=== PATIENT | female | born 2000 ===

== ENCOUNTER 2023-09-24 06:11 | Day surgery (SDC) | payer BC, SELFPAY ==
[2023-09-24] VITALS (10 sets, daily range): BP systolic 109–125; BP diastolic 53–84
[2023-09-24] MEDS: CELEBREX 200 MG PO (06:46)
[2023-09-24] MEDS: TYLENOL 1000 MG PO (06:46)
[2023-09-24] MEDS: NORMOSOL-R 1000 IV (06:46)
--- NOTE | 2023-09-24 08:34 | W.IMMPOSTOP ---
Surgical Immed Post Op Note
-
Primary Surgeon: Isaiah Love MD
Assisting Surgeon: None
Pre-op Diagnosis: Perianal abscess, possible fistula, anal skin tag
Post-op Diagnosis: Perianal fistula, anal skin tag, posterior midline anal fissure, anal lesion
Procedure Performed: Exam under anesthesia, excision of anal skin tag, fissurectomy, placement of seton, debridement of fistula tract
Anesthesia Type: Sedation with local
Specimen / Cultures: 1. Anal fistula tract 2. Anal skin tag 3. Left lateral mid anal biopsy
Estimated Blood Loss: 10 mL
Complications: None
Operative Findings: Per op note
--- NOTE | 2023-09-24 08:37 | OR.RPT ---
Operative Report
Operative Report
DATE OF OPERATION: 09/24/2023
SURGEON: Isaiah Love MD
PREOPERATIVE DIAGNOSIS: Perianal abscess, possible fistula, anal skin tag
POSTOPERATIVE DIAGNOSIS: Left anterior transsphincteric anal fistula, posterior midline anal skin tag, posterior midline anal fissure, anal lesion
OPERATION: Exam under anesthesia, debridement of fistula tract with biopsy placement of seton, excision of anal skin tag, fissurectomy, anal lesion biopsy, bilateral pudendal nerve block
ASSISTANTS:
1. None
ANESTHESIA: MAC w/ local
ESTIMATED BLOOD LOSS: 10 mL
FINDINGS:
1. Anal canal measuring 3.5 cm in length anteriorly and 4 cm in length posteriorly; external opening in the left anterior perianal region about 3 cm from the anal verge; fistula tract easily identified extending radially to the left anterior area
of the mid anal canal near the dentate line; debrided the external opening, curetted the fistula tract, sent tract for pathology and placed a seton
2. Posterior midline with small anal fissure, about 3 mm in length associated with a skin tag; excised the skin tag and fulgurated the fissure
3. Identified mosaic pattern in the left lateral position of the mid anal canal, no obvious masses noted; performed biopsy to rule out intraepithelial lesion
SPECIMENS:
1. Anal fistula
2. Anal skin tag
3. Left lateral mid anal canal biopsy
DRAINS: None
COMPLICATIONS: None
INDICATIONS: The patient is a 23-year-old female who presented to my office for concern of perianal pain and drainage. On exam, there appeared to be an external opening in the left anterior perianal position, about 2 to 3 cm from the anal verge
with drainage of pus. Therefore, the patient was recommended to have surgery to investigate for possible fistula. The patient also had a posterior skin tag. The operation was discussed with the patient in detail, including the risks, benefits and
alternatives. Risks described included, but not limited to bleeding, infection, damage to nearby structures such as the anal sphincter, fecal incontinence, recurrence, urinary retention, inability to identify the internal opening and anesthetic
risks. The patient understood and agreed to proceed. The consent was signed and placed in the chart.
PROCEDURE IN DETAIL: The patient was taken to the operating room. The patient was then placed on the operating table in prone position. Sequential compression devices were placed bilaterally. Sedation was commenced without complication. Two seat
belts were secured around the legs and upper back. The buttocks were taped apart. The perineum was prepped and draped in the usual fashion. A time-out was then performed verifying the correct patient, procedure, operative site, positioning, and
special equipment.
Local anesthesia used was a mixture of 60 mL of 0.25% Marcaine without epinephrine (with epinephrine was on backorder) and 0.6 mg of dexamethasone. 40 mL was injected perianally at the beginning of the case. The anorectal exam was performed
assessing all four quadrants of the anal canal using Hill-Granger retractors in progressively increasing size. There was the external opening associated with scarring of the perianal skin, about 1 cm in diameter. This was located in the left
anterior perianal region, about 3 cm from the anal verge. There was a pendulous skin tag in the posterior midline associated with a small posterior midline anal fissure, only about 3 mm in size. There was a moderate-sized semi-pendulous skin tag
in the anterior midline. There were small, nonthrombosed, not irritated external hemorrhoids. There is also some superficial changes to the left lateral area of the mid anal canal, which I would describe as mosaicism. No obvious masses or lesions
were noted.
I began by passing a fistula probe from the external opening towards the anal canal. A tract was easily identified that was oriented radially with an internal opening at the right anterior position at the level of the dentate line. I measured her
anal canal to be 4 cm posteriorly and about 3.5 cm anteriorly. The dentate line was about 1.5 cm proximal to the anal verge. Therefore, the fistula involved about 30 to 50% of the anal canal anteriorly. The fistula was transphincteric, including
the external sphincter as well. Therefore, I decided the best operation at this point would be to debride the external opening and fistula tract with placement of seton.
I turned my attention to the posterior midline fissure. As the associated skin tag was pendulous, I elevated this and excised this with the Metzenbaum scissors, taking care to avoid injury to the underlying sphincter. Hemostasis was achieved with
electrocautery. I then fulgurated the anal fissure with electrocautery to encourage wound healing. There was no concerning adjacent lesions to the anal fissure. Next, I performed a biopsy of the left lateral mid anal canal to rule out concern of
intraepithelial lesion in this area. Using a forceps, I grasped a small amount of epithelium, elevated it, and excised a small piece with Metzenbaum scissors. I passed this off for pathology. Hemostasis was achieved with electrocautery.
I turned my attention back to the fistula. I excised the scar of the external opening with electrocautery and passed this off for pathology. I curetted the fistula tract with a small curette and passed off the granulation tissue for pathology as
well. I opened the perianal skin along the fistula probe towards the anal verge until I encountered the external sphincter, in order to shorten the length of the fistula, ensuring no injury to the external sphincter. I passed a 3-0 silk tie
attached to the fistula probe through the fistula tract. I then passed a red vessel loop attached to the 3-0 silk tie through the fistula tract. I secured the vessel loop to itself with 3 knots of 2-0 silk.
Hemostasis was checked and assured. Surgicel was placed in the operative site prophylactically. The remaining local was injected. 5 mL was injected bilaterally for a pudendal nerve block. 10 mL was injected around the surgical site and perianally.
At this point, the procedure was complete. All needle, sponge and instrument counts were correct. The patient tolerated the procedure well and was transferred to the recovery room in stable condition with gauze and silk tape in place over the anus.
DICTATED BY: Isaiah Love MD
== END 2023-09-24 10:12 | disposition home or self-care (01) ==
LOC: SDS 06:11
PROVIDERS: ATTENDING PHYSICIAN Surgery
DX: K60.2 Anal fissure, unspecified (principal); R85.613 High grade squamous intraepithelial lesion on cytologic smear of anus (HGSIL); K64.4 Residual hemorrhoidal skin tags
CPT/HCPCS: 46922; 46200; 88304; 88305; 88341; 88342

== ENCOUNTER → 2023-12-10 14:01 | Outpatient (REF) | payer BC, SELFPAY ==
[2023-12-17 05:19] LABS: HPV, High Risk Detected; HPV, High Risk Source Anal
== END ==
LOC: CLAB 14:01
PROVIDERS: ATTENDING PHYSICIAN Surgery
DX: R85.613 High grade squamous intraepithelial lesion on cytologic smear of anus (HGSIL) (principal)
CPT/HCPCS: 87624; 88112

== ENCOUNTER 2023-12-24 06:55 | Day surgery (SDC) | payer BC, SELFPAY ==
[2023-12-24 07:52] VITALS: BP 123/69
[2023-12-24 08:14] VITALS: BMI 28.6
[2023-12-24] MEDS: CELEBREX 200 MG PO (08:17)
[2023-12-24] MEDS: TYLENOL 1000 MG PO (08:17)
[2023-12-24] MEDS: NORMOSOL-R/PLASMALYTE-A 1000 IV (08:34)
--- NOTE | 2023-12-24 10:14 | W.IMMPOSTOP ---
Surgical Immed Post Op Note
-
Primary Surgeon: Isaiah Love MD
Assisting Surgeon: None
Pre-op Diagnosis: Transsphincteric left anterior perianal fistula, anal skin tag
Post-op Diagnosis: Transsphincteric left anterior perianal fistula, anal skin tag, anal fissure
Procedure Performed: Exam under anesthesia, ligation of intersphincteric fistula tract, anal skin tag excision, bilateral pudendal nerve block
Anesthesia Type: Sedation with local
Specimen / Cultures: Fistula tract, left anterior anal skin tag
Estimated Blood Loss: 5 mL
Complications: None
Operative Findings: Small, about 2 to 3 mm, PML anal fissure, unlikely contributing to her symptoms; large multilobulated anterior midline anal skin tag, a seton extending from the internal opening (about 1 cm distal to the dentate line) to the
external opening, about 3.5 cm from the anal verge (I had shortened the length of the fistula to less than 2.5 cm, but this healed back down with the external opening close to where it originated); I debrided the external opening; there was about 5
mm of internal sphincter and 5 mm of external sphincter; as this is a young female with an anteriorly oriented fistula tract, I elected to proceed with left procedure; after ligation of fistula tract, dilute hydroperoxide confirmed no leak; to close
the wound, I excised a portion of the anal skin tag and closed the incision loosely with four 2-0 Vicryl's; left the external opening open to promote drainage
[2023-12-24 10:18] VITALS: BP 102/73
--- NOTE | 2023-12-24 10:20 | OR.RPT ---
Operative Report
Operative Report
DATE OF OPERATION: 12/24/2023
SURGEON: Isaiah Love MD
PREOPERATIVE DIAGNOSIS: Transsphincteric left anterior perianal fistula, anal skin tag
POSTOPERATIVE DIAGNOSIS: Transsphincteric left anterior perianal fistula, anal skin tag, posterior midline anal fissure
OPERATION: Exam under anesthesia, ligation of intersphincteric fistula tract, excision of anal skin tag, debridement of external opening, bilateral pudendal nerve block
ASSISTANTS:
1. None
ANESTHESIA: Sedation with local
ESTIMATED BLOOD LOSS: 5 mL
FINDINGS:
1. Large multilobulated anterior midline anal skin tag
2. Transsphincteric left anterior perianal fistula with internal opening originating 1 cm distal to the dentate line, extending in a radial fashion externally to about 3.5 cm from the anal verge; 5 mm of internal and 5mm of external sphincter were
still involved with the fistula tract; proceeded with LIFT procedure
3. Small posterior midline anal fissure, only about 2-3 mm in size, no granulation tissue at the base
4. Excised scar and granulation tissue at the external opening in the left anterior position; wound was left open to encourage postoperative drainage, measuring about 2 cm x 1.5 cm in size
SPECIMENS:
1. Fistula tract
2. Left anterior anal skin tag
DRAINS: None
COMPLICATIONS: None
INDICATIONS: The patient is a 23-year-old female who initially presented to me with perianal pain and a possible perianal cyst. She was noted to have anal skin tags, a thrombosed external hemorrhoid, small internal hemorrhoids and an external
opening in the left anterior position about 5 to 6 cm from the anal verge, concerning for a perianal fistula. She was taken to the operating room on 09/24/2023. She was noted to have a left anterior transsphincteric fistula. This was shortened and
a seton was placed. The thrombosed external hemorrhoid had resolved. She was noted to have a posterior midline fissure that was fulgurated. A posterior midline tag was excised. There was an area of mosaicism in the mid-anal canal, which was
biopsied and showed HSIL. She will undergo high-resolution anoscopy after definitive treatment of her fistula. Postoperatively, the anal pain associated with the fissure resolved. For the fistula, I recommended that she undergo a second stage
surgery for a repeat assessment. The operation was discussed with the patient in detail, including the risks, benefits and alternatives. My operative plan will depend on the intraoperative findings. Specifically, I would assess for the amount of
sphincter involvement. If there is minimal sphincter involvement, I would proceed with fistulotomy as this has the lowest risk of recurrence. However, if there is a significant amount of sphincter still involved, I would proceed with a
sphincter-sparing procedure, such as a LIFT procedure versus an advancement flap. These procedures have a significantly higher risk of recurrence, but have a lower risk of sphincter injury and subsequent incontinence. Risks described included, but
not limited to, bleeding, infection, urinary retention, damage to nearby structures such as the anal sphincter, fecal incontinence, anal stenosis, recurrence, flap complications if one is created (i.e.- ischemia, flap loss or failure) and anesthetic
risks. The patient and patient's mom understood and agreed to proceed. The consent was signed and placed in the chart.
PROCEDURE IN DETAIL: The patient was taken to the operating room. The patient was then placed on the operating table in prone position. Sequential compression devices were placed bilaterally. Sedation was commenced without complication. Two seat
belts were secured around the legs and upper back. The buttocks were taped apart. The perineum was prepped and draped in the usual fashion. A time-out was then performed verifying the correct patient, procedure, operative site, positioning, and
special equipment.
Local anesthesia used was a mixture of 60 mL of 0.25% Marcaine without epinephrine and 0.6 mg of dexamethasone. 40 mL was injected perianally at the beginning of the case. The anorectal exam was performed assessing all four quadrants of the anal
canal using Hill-Granger retractors in progressively increasing size. She had a large anterior midline multilobulated anal skin tag. There was a portion of the skin tag towards the left of midline that was adjacent to the fistula. She was noted
to have small, non-irritated, internal hemorrhoids. There was a small posterior midline anal fissure, about 2 to 3 mm in size. The fissure appeared acute without rolled edges or granulation tissue at the base. Therefore, the Hill-Granger likely
stretched the fissure slightly. As she had no pain preoperatively, I suspect that this fissure was not contributing to her symptoms and I left this alone. The seton was in place through the left anterior transsphincteric fistula. The internal
opening was radially located at about 1 cm distal from the dentate line. The external opening that had been opened to shorten the fistula tract had healed in a manner to extend the fistula tract close to its length prior to the seton placement, and
was now about 3.5 cm from the anal verge. The seton was replaced with a fistula probe and the sphincter involvement was assessed. There appeared to be about 5 mm of internal sphincter and 5 mm of external sphincter still involved with the fistula.
I excised the scar tissue associated with the external opening and extended this towards the anus to shorten the tract once more. I passed off the external opening for pathology. I again confirmed that there was still about 5 mm of external
sphincter muscle involved. At this point, anesthesia requested more local be injected as the patient was moving. 30 mL of 0.25% Marcaine with epi was mixed with 0.3 mg of dexamethasone. 5 mL of this new mixture were injected perianally to improve
the local anesthesia.
Based on the above findings and because the patient is a young female with child-bearing years still ahead, I elected to proceed with a LIFT procedure in order to minimize any damage to the sphincter complex. With the fistula probe in place, I
created a curvilinear incision at the intersphincteric groove, about 1.5 cm in length, while retracting the anterior midline anal skin tag away. I set up a [place] retractor to assist with exposure using 4 hooks. I used the large Hill-Granger
retractor to expose the internal opening. I dissected down between the internal and external sphincter and circumferentially exposed to the fistula with a right angle. I placed a vessel loop around the fistula and secured this to the drapes. I
removed the fistula probe and curetted the fistula tract. I suture-ligated the fistula tract within the intersphincteric groove using a 3-0 Vicryl proximally and distally. I divided the tract using a 15 blade scalpel and removed the vessel loop.
I tested the closure by gently injecting dilute hydrogen peroxide from the external opening. A tiny leak from the external portion of the fistula was noted. Another [id number] 2-0 Vicryl was placed at the external end of the tract. Another
leak test was performed and was now negative. The internal end of the fistula tract was ligated once more with an additional [id number] 2-0 Vicryl. The operative field was irrigated and hemostasis was assured.
As the anterior midline skin tag was immediately adjacent to my curvilinear incision, to help with closure, I excised the lobule of the skin tag that was just left of midline using a Metzenbaum scissors. After this, the incision lined up nicely. It
was then loosely closed with 2-0 Vicryl interrupted stitches. Hemostasis was checked and assured. Using 15 mL of the 0.25% Marcaine with epi mixed with dexamethasone, I injected 5 mL bilaterally for a pudendal nerve block and 5 mL was injected
around the surgical site and perianally. Hemostasis was reassessed once more using the small Hill-Granger and was confirmed.
At this point, the procedure was complete. All needle, sponge and instrument counts were correct. The patient tolerated the procedure well and was transferred to the recovery room in stable condition with gauze dressing in place secured with silk
tape.
DICTATED BY: Isaiah Love MD
[2023-12-24 10:25] VITALS: BP 114/57
[2023-12-24 10:42] VITALS: BP 121/65
[2023-12-24 10:45] VITALS: BP 115/67
[2023-12-24 10:53] VITALS: BP 118/53
[2023-12-24] MEDS: MOTRIN 600 MG PO (11:10)
== END 2023-12-24 11:10 | disposition home or self-care (01) ==
LOC: SDS 06:55
PROVIDERS: ATTENDING PHYSICIAN Surgery
DX: K60.30 Anal fistula, unspecified (principal); K64.4 Residual hemorrhoidal skin tags; K60.2 Anal fissure, unspecified
CPT/HCPCS: 46275; 45990; 88304

== ENCOUNTER 2024-01-13 09:25 | Emergency (ER) | payer BC, SELFPAY ==
[2024-01-13 09:44] VITALS: BP 142/86
--- NOTE | 2024-01-13 11:16 | ED.MUSCINJ ---
HPI-Injury
General
Chief Complaint: Fall
Source: patient
Exam Limitations: none
Time Seen by Provider: 01/13/24 11:08
History of Present Illness-Injury
Initial Injury comments:
23-year-old female presents after a fall down the whole flight of stairs. She states she missed the first step and fell missing all of the steps hitting her head on the wall on the bottom of the steps. She put a hole in the wall with her head.
She notes a slight headache and neck pain. No noted loss of conscious. She denies chest or abdominal pain. She denies arm or leg pain. She admits to biting her lower lip and having a brush burn to her left knee.
Phy Exam
Physical Exam
Physical Exam:
General: Well-appearing female no acute respiratory distress
HEENT: Normocephalic superficial puncture to the mucosal side of the lower lip. Dentition appears well pupils equal round reactive to light
Heart: Regular rate and rhythm no murmur
Lungs: Clear no wheeze
Musculoskeletal exam: Mild paraspinous tenderness about the cervical spine. Good range of motion to the arms and legs
Abdomen is soft nontender nondistended
Injury Course
Orders/Labs/Results
Orders:
Orders
01/13/24 11:15
CT Cervical Spine W/o Iv Contr Urgent
Comment:
Reason For Exam: fall down 12 steps
01/13/24 11:16
CT Head W/o Iv Contrast Urgent
Comment:
Reason For Exam: fall
MDM/Problems Addressed
Differential Diagnosis Includes:
Fall down steps. Mechanism of fall is somewhat concerning given the height of the fall and that it is slowing down and I will mid staircase. She and slight neck pain. No deficit on exam will order CT of head and cervical spine. Will dress left
knee abrasion with antibacterial ointment and a Band-Aid
*Critical Care Note
Total Time (30-74mins, 75-104mins- exclusive of procedures): Not Applicable
Update Note
Update Note:
CT of head and cervical spine both negative for acute traumatic injury. Patient reassured. Stable for discharge
ED Attending Note
-
Portions of this chart may have been created with voice recognition software.� Occasional wrong word or��sound alike� substitutions may have occurred due to the inherent limitations of voice recognition software.
Discharge Plan
Departure
Patient Disposition: Home (Routine Discharge)
Date of Disposition: 01/13/24
Time of Disposition: 13:26
Patient with high blood pressure during this ER visit?: No
Discharge Problem:
Fall
Instructions: Head Injury in Adults (DC)
Prescriptions:
No Action
Fleet Enema 19-7 gram/118 mL Enema
118 ml IN PRE OP
Fiber Gummies 2 gram Tablet,Chewable
2 g PO DAILY
naproxen [Naprosyn] 500 mg tablet
500 mg PO BID Qty: 14 0RF
tramadol 50 mg tablet
50 mg PO Q6H PRN (Reason: Pain) Qty: 14 0RF
Referrals:
Hanna Sandoval MD [Family Provider] -
Activity Restrictions/Additional Instructions:
Rest. You may use ibuprofen or Tylenol for pain. Return here if worse otherwise follow-up with your family doctor. As discussed, there is no evidence of traumatic injury on your imaging today
Interventions
Interventions:
*Risk Screen - Suicide Last Done: 01/13/24 09:44
*General Assessment Last Done: 01/13/24 09:44
*Neglect/Abuse Screening Last Done: 01/13/24 09:44
*ED COVID-19 Vaccine History Last Done: 01/13/24 10:59
ED-Musculoskeletal Assessment Last Done: 01/13/24 10:59
ED- Neurological Assessment Last Done: 01/13/24 10:59
ED-Skin Assessment Last Done: 01/13/24 10:59
Discharge Date and Time
Print Language: INDONESIAN
[2024-01-13 12:45] VITALS: BP 130/107
[2024-01-13 13:26] VITALS: BP 117/72
== END 2024-01-13 13:37 | disposition home or self-care (01) ==
LOC: EMR 09:25
PROVIDERS: EMERGENCY PHYSICIAN Emergency Medicine; FAMILY PHYSICIAN Family Medicine
DX: S01.531A Puncture wound without foreign body of lip, initial encounter (principal); S80.212A Abrasion, left knee, initial encounter; M54.2 Cervicalgia; W10.9XXA Fall (on) (from) unspecified stairs and steps, initial encounter
CPT/HCPCS: 99284; 70450; 72125

== ENCOUNTER 2024-04-23 06:15 | Day surgery (SDC) | payer OTHER, SELFPAY ==
[2024-04-23 06:23] VITALS: BP 126/89
[2024-04-23 06:28] VITALS: BMI 30.2
[2024-04-23 06:29] VITALS: BMI 30.2
[2024-04-23] MEDS: NORMOSOL-R/PLASMALYTE-A 1000 IV (06:44)
[2024-04-23] MEDS: CELEBREX 200 MG PO (06:44)
[2024-04-23] MEDS: TYLENOL 1000 MG PO (06:44)
[2024-04-23 09:03] VITALS: BP 137/68
[2024-04-23 09:13] VITALS: BP 132/71
--- NOTE | 2024-04-23 09:15 | W.IMMPOSTOP ---
Surgical Immed Post Op Note
-
Primary Surgeon: Isaiah Love MD
Assisting Surgeon: PRAVEEN Parks
Pre-op Diagnosis: Perianal fistula, anal fissure, high-grade squamous intraepithelial lesion
Post-op Diagnosis: Same
Procedure Performed: Exam under anesthesia, fistulotomy of intersphincteric portion of fistula, seton placement of transsphincteric portion of fistula, high resolution anoscopy with biopsies
Anesthesia Type: Sedation
Specimen / Cultures: Per op note
Estimated Blood Loss: 5 mL
Complications: None
Operative Findings: Per op note
--- NOTE | 2024-04-23 09:16 | OR.RPT ---
Operative Report
Operative Report
DATE OF OPERATION: 04/23/2024
SURGEON: Isaiah Love MD
PREOPERATIVE DIAGNOSIS: Perianal fistula, anal fissure, high-grade squamous intraepithelial lesion
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
OPERATION: Exam under anesthesia, fistulotomy of intersphincteric portion of transsphincteric fistula, seton placement in transsphincteric portion of fistula, high resolution anoscopy with biopsies, right sided pudendal nerve block
ASSISTANTS:
1. PRAVEEN Parks
ANESTHESIA: Sedation with local
ESTIMATED BLOOD LOSS: 5 mL
FINDINGS:
1. Prior external opening in left anterior position noted with pus emanating from it as well as an opening at the intersphincteric groove; probed and identified recurrence of previous transsphincteric fistula with internal opening 5 mm proximal to
the anal verge; additional opening at the intersphincteric groove which connected to the transsphincteric fistula; no significant abscess cavity throughout length of fistula
2. Posterior midline fissure about 1 cm wide and 1.5 cm in length with evidence of epithelialization over fissure base; sphincter tone noted to be hypertonic; due to presence of infection within fistula tract and fistulotomy of short portion of
internal sphincter, deferred to Botox injection
3. Performed fistulotomy of intersphincteric portion of fistula (about 5 mm of IAS) and excised a small pedunculated skin tag that was along this incision to promote saucerization of tract; placed seton along transsphincteric portion of fistula
tract (estimated only about 5mm of EAS involved)
4. Performed high resolution anoscopy and performed biopsies as listed below; no masses
5. Incidental findings: Large multilobulated anterior midline skin tag, small internal hemorrhoids in the usual distribution, not irritated or bleeding
SPECIMENS:
1. Left lateral perianal biopsy
2. Right lateral perianal biopsy
3. Left lateral mid anal canal biopsy
4. Right posterior mid anal canal biopsy
5. Right posterior deep anal canal biopsy
6. Left anterior skin tag (margin of fistulotomy)
7. External fistula tract
DRAINS: Seton
COMPLICATIONS: None
INDICATIONS: The patient is a 23-year-old female who initially presented with transsphincteric fistula as well as anal fissure. Additionally, during her index surgery, a biopsy was performed which showed high-grade intraepithelial lesion. Her
anal fissure was treated with nonoperative measures and had improved. She underwent a LIFT procedure but was found to have persistent drainage from the intersphincteric groove incision, concerning for recurrent fistula. Lastly, at her last visit,
she was noted to have worsening pain and recurrence of her anal fissure, which was associated with increased sphincter tone. I restarted nifedipine/lidocaine cream and recommended surgery to evaluate for recurrent fistula. As she has been unable
to undergo high-resolution anoscopy due to her prolonged complicated recovery, so I recommended high-resolution anoscopy during the surgery as well. I explained that the first objective of surgery today will be to identify the fistula tract and if
any sphincter muscle is involved. The second objective is to evaluate the anal fissure for evidence of healing and if there is hypertonicity to the internal sphincter. If a fistulotomy is not performed, I would consider Botox injection to help
with fissure healing. Lastly, I will perform high-resolution anoscopy with application of acetic acid and Lugol's and biopsy any concerning lesions for mapping purposes. If these biopsies come back with high-grade atypia, I would perform a
subsequent high resolution anoscopy with treatment. The operation was discussed with the patient in detail, including the risks, benefits and alternatives. Risks described included, but not limited to bleeding, infection, urinary retention, damage
to nearby structures such as the anal sphincter, fecal incontinence, anal stenosis, recurrence of fistula or fissure and anesthetic risks. The patient understood and agreed to proceed. The consent was signed and placed in the chart.
PROCEDURE IN DETAIL: The patient was taken to the operating room. Sequential compression devices were placed bilaterally. The patient was placed on the operating table in prone position. Sedation was commenced without complication. Two seat belts
were secured around the legs and upper back. The buttocks were taped apart. The perineum was prepped and draped in the usual fashion. A time-out was performed verifying the correct patient, procedure, operative site, positioning, and special
equipment.
Local anesthesia used was a mixture of 60 mL of 0.25% Marcaine with epinephrine and 0.6 mg of dexamethasone. 40 mL was injected perianally at the beginning of the case. The anorectal exam was performed assessing all four quadrants of the anal canal
using Hill-Granger retractors in progressively increasing size. Perianally, there was the known anterior midline anal skin tag that was multilobulated. There was no verrucous changes associated with the tag and it was soft and pliable, not
concerning for other pathology. There was an external opening in the left anterior position, the same location of her previous external opening. Today, there was some fluctuance noted with the external opening and on palpation, pus was seen
emanating from an opening at the intersphincteric groove. On anoscopy, there were no concerning masses or raised lesions. There were small internal hemorrhoids without irritation or bleeding. Using Blood fistula probes, the external opening
was probed. Immediately expressed was 2-3 mLs of sanguinous pus. The probe easily passed to an internal opening in the left anterior position, 5 mm proximal to the anal verge. Upon probing the entire length of the fistula, no abscess cavity was
identified. The opening at the intersphincteric groove was connected to this fistula tract, likely representing a chronic opening from the incision created at the prior LIFT procedure. No other openings or areas of fluctuance were noted in the
perianal skin or anal canal, so no concern for additional fistulas. There was no inflammation or erythema associated with the anal canal or distal rectum.
I attached a 2-0 silk tie to the fistula probe and passed this through the fistula tract. This was clamped and placed to the side. I proceeded with high resolution anoscopy. I placed a Ray-Francisco soaked with 5% acetic acid within the anal canal with
a portion covering the perianal skin. This was left in place for 3 minutes, then discarded. Using a laparoscopic 10�30 camera on the highest zoom setting, the perianal skin and anal canal was evaluated systematically. On the perianal skin, there
were areas noted in the left lateral and right lateral quadrants that were acetowhite. However, there were no abnormal vascular configurations. Upon application of Lugol's, there was partial uptake. I performed a biopsy in the left lateral and
right lateral perianal areas using Metzenbaums and DeBakey forceps to raise the tissue, taking care to avoid injury to the underlying sphincter. Hemostasis was achieved with electrocautery.
On evaluation of the left lateral quadrant of the anal canal, there was a small region with irregular borders and heterogeneous uptake of acetowhite. There was the appearance of micropunctations. Upon application of Lugol's, there was partial
uptake. I performed a biopsy in this area in a similar manner. Hemostasis was achieved with electrocautery.
On evaluation of the posterior quadrant, there was an area in the right posterior region that appeared acetowhite and partial uptake of Lugol's solution. There were no visible vascular changes. I performed a biopsy in a similar manner at the
mid-anal canal and in the proximal anal canal near the dentate line (labeled deep). Hemostasis was achieved with electrocautery.
On evaluation of the right lateral quadrant, there were some areas of acetowhite, but these stained Lugol's positive. There were no visible vascular changes. Therefore, I did not perform any biopsies in this area.
On evaluation of the anterior quadrant, there were some areas of acetowhite, but these stained Lugol's positive. There were no visible vascular changes. Therefore, I did not perform any biopsies in this area.
I turned my attention back to the transsphincteric fistula. As there was a branch to the intersphincteric groove and therefore 2 components of this fistula (i.e.�intersphincteric and transsphincteric), I elected to proceed with fistulotomy of the
intersphincteric portion to further aid in superficialization of the fistula and healing. I curetted the entire length of the fistula tract. I placed a Blood fistula probe from the intersphincteric groove opening to the internal opening. I
used electrocautery to open this tract. There was less than 5 mm of internal sphincter fibers involved. Immediately adjacent to this incision was a small pedunculated skin tag, about 6 to 7 mm in size. In order to saucerize the tract, I excised
the skin tag along with this margin of the fistulotomy using electrocautery. I passed the skin tag off for pathology. On palpation of the external portion of the fistula tract, there was likely only 5 mm of external sphincter muscle involved, but
this was difficult to be certain of due to the inflammation associated with the infection. Therefore, I felt the safest decision would be to place a seton to promote additional drainage from the fistula tract and allow a more accurate assessment of
external sphincter muscle involvement at the second stage surgery. I attached a blue vessel loop to the 2-0 silk and passed this through the remaining fistula tract. I secured the vessel loop to itself with three 2-0 silk stitches. I was able to
pass the tip of my index finger under the seton, confirming that it was not too tight.
The anal canal was once more evaluated in all 4 quadrants and irrigated with saline. Hemostasis was assured. The remaining 20 mL of local were injected. 5 mL was injected along the right pudendal nerve for a right sided block. Due to the
left-sided fistula and my concern for seeding infection into deeper tissue, I did not perform a pudendal block on the left side. 15 mL was injected subcutaneously around the surgical site and perianally. Hemostasis was reassessed once more using
the small Hill-Granger and was confirmed.
At this point, the procedure was complete. All needle, sponge and instrument counts were correct. The patient tolerated the procedure well and was transferred to the recovery room in stable condition with gauze dressing in place secured with silk
tape.
Of note, PRAVEEN Parks, server assistant, was necessary during this procedure for traction, countertraction, and exploratory purposes. I was present for the entire duration of the case.
DICTATED BY: Isaiah Love MD
[2024-04-23 09:30] VITALS: BP 122/71
== END 2024-04-23 10:00 | disposition home or self-care (01) ==
LOC: SDS 06:15
PROVIDERS: ATTENDING PHYSICIAN Surgery
DX: R85.613 High grade squamous intraepithelial lesion on cytologic smear of anus (HGSIL) (principal); K60.30 Anal fistula, unspecified; K60.2 Anal fissure, unspecified; K64.8 Other hemorrhoids
CPT/HCPCS: 46275; 46020; 88304; 88305; J0585

== ENCOUNTER 2024-07-30 14:11 | Day surgery (SDC) | payer OTHER, SELFPAY ==
[2024-07-30 14:15] VITALS: BP 131/65
[2024-07-30 14:20] VITALS: BMI 31.4
[2024-07-30] MEDS: CELEBREX 200 MG PO (14:27)
[2024-07-30] MEDS: TYLENOL 1000 MG PO (14:28)
[2024-07-30 14:30] VITALS: BMI 31.4
[2024-07-30] MEDS: NORMOSOL-R/PLASMALYTE-A 1000 IV (14:45)
[2024-07-30 16:53] VITALS: BP 101/57; BP 131/65
--- NOTE | 2024-07-30 16:58 | W.IMMPOSTOP ---
Addendum entered and electronically signed by Isaiah Love MD 07/30/24 17:51:
updated patient and patient's dad in-person
Original Note:
Surgical Immed Post Op Note
-
Primary Surgeon: Isaiah Love MD
Assisting Surgeon: none
Pre-op Diagnosis: Transsphincteric anal fistula
Post-op Diagnosis: Transsphincteric anal fistula
Procedure Performed: Fistulotomy with marsupialization, bilateral pudendal nerve block
Anesthesia Type: Sedation with local
Specimen / Cultures: None
Estimated Blood Loss: 5 mL
Complications: None
Operative Findings: Well-healed posterior midline anal fissure with tiny sentinel tag, anterior midline broad-based anal tag; external portion of transsphincteric fistula in the left anterior position with seton in place; internal opening was 5 mm
distal to the anal verge; less than 5 mm of external anal sphincter noted within fistula so performed fistulotomy with debridement of the tract and marsupialization of the edges
[2024-07-30 17:00] VITALS: BP 102/59
--- NOTE | 2024-07-30 17:05 | OR.RPT ---
Operative Report
Operative Report
DATE OF OPERATION: 07/30/2024
SURGEON: Isaiah Love MD
PREOPERATIVE DIAGNOSIS: Transsphincteric anal fistula
POSTOPERATIVE DIAGNOSIS: Transphincteric anal fistula
OPERATION: Exam under anesthesia, debridement of fistula tract, fistulotomy with marsupialization, bilateral pudendal nerve block
ASSISTANTS:
1. None
ANESTHESIA: Sedation with local
ESTIMATED BLOOD LOSS: 5 mL
FINDINGS:
1. Transsphincteric fistula in the left anterior position with seton in place; internal opening 5 mm distal to the anal verge; less than 5 mm of external anal sphincter involved
2. Incidental findings: well-healed posterior midline anal fissure with tiny sentinel tag, anterior midline broad�based skin tag
SPECIMENS:
1. None
DRAINS: N/A
COMPLICATIONS: None
INDICATIONS: The patient is a 24-year-old female with PMH of anal fissure and transsphincteric anal fistula that recurred after LIFT procedure and underwent fistulotomy of intersphincteric portion of fistula and seton placement of transsphincteric
portion. She presents for second stage surgery. I explained the nature of the surgery to include evaluation of sphincter muscle involvement with possible fistulotomy versus cutting seton placement. The operation was discussed with the patient in
detail, including the risks, benefits and alternatives. Risks described included, but not limited to bleeding, infection, urinary retention, damage to nearby structures such as the anal sphincter, fecal incontinence, recurrence and anesthetic risks.
The patient understood and agreed to proceed. The consent was signed and placed in the chart.
PROCEDURE IN DETAIL: The patient was taken to the operating room. The patient was placed on the operating table in prone position. Sequential compression devices were placed bilaterally. Sedation was commenced without complication. Two seat belts
were secured around the legs and upper back. The buttocks were taped apart. The perineum was prepped and draped in the usual fashion. A time-out was performed verifying the correct patient, procedure, operative site, positioning, and special
equipment.
Local anesthesia used was a mixture of 60 mL of 0.25% Marcaine with epinephrine and 0.6 mg of dexamethasone. 40 mL was injected perianally at the beginning of the case. The anorectal exam was performed assessing all four quadrants of the anal canal
using Hill-Granger retractors in progressively increasing size. There was a well-healed fissure in the posterior midline with tiny sentinel tag. There was a broad-based anal skin tag in the anterior midline. There was no proctitis. The
sphincter tone was slightly elevated. The transsphincteric fistula was in the left anterior position with seton in place. No evidence of erythema, fluctuance or purulent drainage. The internal opening was just distal to the anal verge by about 5
mm. A fistula probe was placed and the seton was removed. No other internal openings were identified or branch points within the fistula. There was no abscess cavity. There appeared to be less than 5 mm of external sphincter muscle within the
fistula. I made an incision in the skin overlying the fistula using electrocautery. I slowly deepened this to identify any external sphincter muscle. The majority of the tissue was subcutaneous adipose. I encountered less than 5 mm of external
sphincter muscle. Therefore, I completed the fistulotomy. The fistula tract was debrided with a curette. Hemostasis was assured with electrocautery. I marsupialized the tract using 2-0 Vicryl interrupted stitches.
The remaining 20 mL of local were injected. 5 mL was injected bilaterally for a pudendal nerve block. 10 mL was injected around the surgical site and perianally. Hemostasis was reassessed once more using the small Hill-Granger and was confirmed.
At this point, the procedure was complete. All needle, sponge and instrument counts were correct. The patient tolerated the procedure well and was transferred to the recovery room in stable condition with gauze and silk tape in place over the anus.
DICTATED BY: Isaiah Love MD
[2024-07-30 17:08] VITALS: BP 113/60
[2024-07-30 17:10] VITALS: BP 113/60
[2024-07-30 17:20] VITALS: BP 116/62
== END 2024-07-30 17:39 | disposition home or self-care (01) ==
LOC: SDS 14:11
PROVIDERS: ATTENDING PHYSICIAN Surgery
DX: K60.329 Anal fistula, complex, unspecified (principal)
CPT/HCPCS: 46275; 46285

== ENCOUNTER 2025-01-27 12:55 | Emergency (ER) | payer OTHER, SELFPAY ==
[2025-01-27 12:59] VITALS: BP 153/96
[2025-01-27 13:41] VITALS: BMI 26.4
--- NOTE | 2025-01-27 14:10 | ED.GENMED ---
History of Present Illness
General
Chief Complaint: Allergic Reaction
Source: patient
Exam Limitations: none
Time Seen by Provider: 01/27/25 13:59
Nursing documentation reviewed up to this point in time: agreed with
History of Present Illness
History of Present Illness:
24-year-old female with history of asthma presents to the ER for evaluation of cough. Patient reports that 2 days ago while she was on vacation in [place] she was having tacos with hot sauce. She says that she did not realize there were peanuts in
the hot sauce and she has an anaphylactic peanut allergy. She says that shortly thereafter she became nauseous and vomited. She said she was having some congestion and coughing afterwards. She took some Benadryl, vomited 1 more time that evening
but symptoms generally resolved and she was able to get the sleep. She says that since then she has had mild cough, today went to work and her coworkers urged her to be evaluated. She says that congestion has improved. She denies any change in
her voice or sensation of swelling in the lips or throat. She says she did not have and does not have any hives or pruritus. No vomiting since initial ingestion. She did not give herself an EpiPen. She has been using some albuterol as needed.
Review of Systems
Review of Systems
All Other Systems: ROS reviewed and negative except as documented in HPI and ROS
Constitutional: Denies fever or chills
Respiratory: Reports cough; Denies trouble breathing
Cardiac: Denies chest pain
ABD/GI: Reports nausea and vomiting (X 2 after initial ingestion); Denies abdominal pain
: Denies flank pain
Musculoskeletal: Denies neck pain or back pain
Skin: Denies itching or rash
Neurological: Denies headache
Phy Exam
Physical Exam
Physical Exam:
General: Awake, alert, oriented x3; no acute distress
Head: Normocephalic, atraumatic
Eyes: Conjunctiva normal, sclera anicteric
Throat: Airway intact, handling secretions, no swelling of lips or tongue, midline uvula without edema
Neck: Trachea midline, supple without meningismus
Lungs: Clear to auscultation bilaterally, no wheezing, rales, rhonchi; occasional cough
Heart: Regular rate and rhythm, no murmurs, gallops, or rubs
Abd: Soft, non distended, nontender
Neuro: Grossly intact
Skin: no rash or hives noted
Extremities: Warm and well-perfused
Scores
Heart Failure Risk
Heart Failure Risk Score: Not Applicable
Heart Score for Chest Pain Patients
STEMI patient?: Not applicable
Withdrawal Assessment of Alcohol
Withdrawal Assessment Completed?: Not applicable
Course
Orders/Labs/Results
Orders:
Orders
01/27/25 13:45
Chest [CR Chest - 2 Views ] Urgent
Comment:
Reason For Exam: cough
01/27/25 14:10
Prednisone [Deltasone] 50 mg PO NOW STA
Vital Signs
Initial and Last Documented VS:
Initial Vital Signs
Temp Pulse Resp BP Pulse Ox
36.9 C 84 16 153/96 99
01/27/25 12:59 01/27/25 12:59 01/27/25 12:59 01/27/25 12:59 01/27/25 12:59
Last Documented Vital Signs
Temp Pulse Resp BP Pulse Ox
36.9 C 84 16 153/96 99
01/27/25 12:59 01/27/25 12:59 01/27/25 12:59 01/27/25 12:59 01/27/25 14:10
MDM/Problems Addressed
Differential Diagnosis Includes:
Asthma exacerbation, anaphylaxis, aspiration/pneumonia
MDM/Problems Addressed:
24-year-old female presents for evaluation of cough over the past 2 days since and initial allergic reaction after unintentional peanut ingestion. She says that she had some hot sauce that had peanuts in it and she has a severe peanut allergy. She
soon thereafter vomited x 2 and had some significant mucus/coughing however she was able to manage her symptoms with Benadryl did not require an EpiPen. Over the past 2 days although the other symptoms have improved she has had persistent cough
which prompted ER visit. Mild hypertension but otherwise normal vitals here�no tachycardia, tachypnea or hypoxia. Physical exam is as above. X-ray here shows no acute abnormalities on my independent review. Overall I suspect that this more
likely a mild asthma exacerbation�perhaps triggered by aspiration/vomiting. She has little to no wheezing today and no signs that this is anaphylactic especially 2 days after the initial ingestion. Stable for discharge on oral steroid course, she
already has albuterol inhaler which I urged her to use. Follow-up with primary doctor as an outpatient. Patient comfortable with this plan. All questions answered.
Chronic conditions affecting care:
Asthma
*Radiology
Radiology exam reviewed: preliminary read by ED provider and radiology read reviewed
*Pulse Oximetry
SaO2: 99
Oxygen Mode of Delivery: Room air
Patient hypoxic: no (99%)
*Critical Care Note
Total Time (30-74mins, 75-104mins- exclusive of procedures): Not Applicable
Data Reviewed
Source: patient
ED Attending Note
-
Portions of this chart may have been created with voice recognition software.� Occasional wrong word or��sound alike� substitutions may have occurred due to the inherent limitations of voice recognition software.
Discharge Plan
Departure
Patient Disposition: Home (Routine Discharge)
Date of Disposition: 01/27/25
Time of Disposition: 14:11
Patient with high blood pressure during this ER visit?: Yes
Discharge Problem:
Asthma exacerbation
Instructions: Asthma in adults (DC)
Prescriptions:
New
prednisone 50 mg tablet
50 mg PO DAILY Qty: 5 0RF
No Action
albuterol sulfate 90 mcg/actuation Hfa Aerosol Inhaler
2 puff INHALATION PRN PRN (Reason: SOB)
naproxen [Naprosyn] 500 mg tablet
500 mg PO BID Qty: 14 0RF
tramadol 50 mg tablet
50 mg PO Q6H PRN (Reason: Pain) Qty: 14 0RF
Referrals:
Hanna Oh MD [Family Provider, Internal Medicine] - Follow up in 5-7 days
Activity Restrictions/Additional Instructions:
Thank you for visiting the Emergency Department at [facility].
1. Please schedule a follow up appointment as directed. Call first thing tomorrow morning to make an appointment.
2. If indicated, please take your medications as instructed and indicated on discharge paperwork.
3. If any of your symptoms do not improve, or persist, or become more severe within 6-12 hours, please return to the emergency department for further care.
4. Please return to the emergency department if you develop a headache, neck pain/stiffness, fever greater than 100.4F, chest pain, shortness of breath, persistent nausea, vomiting, slurred speech, difficulty walking, numbness/tingling, weakness,
signs of infection or any other symptoms that are worrisome to you.
Please call [phone] if you have any questions.
Interventions
Interventions:
*Risk Screen - Suicide Last Done: 01/27/25 12:59
*General Assessment Last Done: 01/27/25 13:41
*Neglect/Abuse Screening Last Done: 01/27/25 12:59
*ED- Fall Risk Assessment Last Done: 01/27/25 13:41
*ED COVID-19 Vaccine History Last Done: 01/27/25 13:41
*ED Influenza Vaccine History Last Done: 01/27/25 13:41
ED- Cardiac Assessment Last Done: 01/27/25 13:41
ED- Pulmonary Assessment Last Done: 01/27/25 13:41
ED-Skin Assessment Last Done: 01/27/25 13:41
Discharge Date and Time
Print Language: ROMANIAN
[2025-01-27] MEDS: DELTASONE 50 MG PO (14:17)
== END 2025-01-27 14:20 | disposition home or self-care (01) ==
LOC: EMR 12:55
PROVIDERS: EMERGENCY PHYSICIAN Emergency Medicine; FAMILY PHYSICIAN Internal Medicine
DX: J45.901 Unspecified asthma with (acute) exacerbation (principal); R03.0 Elevated blood-pressure reading, without diagnosis of hypertension; Z91.010 Allergy to peanuts
CPT/HCPCS: 99283; 71046